=== PATIENT | female | born 2005 | race African-American/Black ===

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

== ENCOUNTER 2023-02-22 03:31 | Emergency (ER) | payer OTHER ==
[2023-02-22 03:45] VITALS: BP 113/55; PULSE 85; RESP 16; TEMP 98.9; BMI 23.6
[2023-02-22] MEDS ORDERED: DEXAMETHASONE SOD PHOSPHATE 10 MG/1 ML VIAL IVPUSH ONE (04:07)
[2023-02-22] MEDS ORDERED: DEXAMETHASONE SOD PHOSPHATE 10 MG/1 ML VIAL ONE (04:12)
[2023-02-22] MEDS ORDERED: ALBUTEROL SO4 2.5/IPRATROPIUM 0.5 INH SOL 3 ML VIAL.NEB. NEB ONE (05:44)
== END 2023-02-22 06:18 | disposition home or self-care (01) ==
LOC: JER 03:31
PROC: 3E033GC Introduction of Other Therapeutic Substance into Peripheral Vein, Percutaneous Approach (ICD-10-PCS; principal; 2023-02-22)
DX: J06.9 Acute upper respiratory infection, unspecified (principal); B97.89 Other viral agents as the cause of diseases classified elsewhere; M79.10 Myalgia, unspecified site; R05.1 Acute cough; R07.0 Pain in throat; R11.10 Vomiting, unspecified; R53.81 Other malaise; Z20.822 Contact with and (suspected) exposure to COVID-19
CPT/HCPCS: 0241U-QW; 71046-TC-FY; 99284-25; J1100

== ENCOUNTER 2023-11-29 21:24 | Emergency (ER) | payer SELFPAY ==
[2023-11-29 21:34] VITALS: BP 120/58; PULSE 83; RESP 16; TEMP 99.2; BMI 22.6
== END 2023-11-29 21:56 | disposition home or self-care (01) ==
LOC: FER 21:24
DX: J98.8 Other specified respiratory disorders (principal); J11.1 Influenza due to unidentified influenza virus with other respiratory manifestations; Z20.822 Contact with and (suspected) exposure to COVID-19
CPT/HCPCS: 0241U-QW; 99283-25